=== PATIENT | male | born 1935 | race Caucasian/White ===

== ENCOUNTER → 2023-09-16 10:01 | Outpatient (REF) | payer BC, SELFPAY | LOC: HWRCS 10:01 | PROVIDERS: ATTENDING PHYSICIAN Internal Medicine Critical Care Medicine; FAMILY PHYSICIAN Internal Medicine | DX: R06.02 Shortness of breath (principal) | CPT/HCPCS: 71046; 93306 ==

== ENCOUNTER → 2023-11-04 08:02 | Outpatient (REF) | payer BC, SELFPAY | LOC: DHCBC/DCA 08:02 | PROVIDERS: ATTENDING PHYSICIAN Internal Medicine; FAMILY PHYSICIAN Internal Medicine | DX: I50.32 Chronic diastolic (congestive) heart failure (principal); I25.10 Atherosclerotic heart disease of native coronary artery without angina pectoris; R06.09 Other forms of dyspnea | CPT/HCPCS: 78452; 93017; A9500 ==

== ENCOUNTER → 2024-07-27 11:04 | Outpatient (REF) | payer BC, SELFPAY ==
[2024-07-29 09:57] LABS: SSA 52 (Ro)(ENA) Ab, IgG 3 AU/mL (0-40); SSA 60 (Ro)(ENA) Ab, IgG 1 AU/mL (0-40); SSB (La)(ENA) Ab, IgG 0 AU/mL (0-40)
== END ==
LOC: HWLAB 11:04
PROVIDERS: ATTENDING PHYSICIAN Internal Medicine Critical Care Medicine; FAMILY PHYSICIAN Internal Medicine
DX: R93.89 Abnormal findings on diagnostic imaging of other specified body structures (principal); R68.2 Dry mouth, unspecified
CPT/HCPCS: 36415; 71046; 86235

== ENCOUNTER → 2025-02-17 10:09 | Outpatient (REF) | payer BC, SELFPAY | LOC: HWRCS 10:09 | PROVIDERS: ATTENDING PHYSICIAN Internal Medicine; FAMILY PHYSICIAN Internal Medicine | DX: R06.00 Dyspnea, unspecified (principal); I25.10 Atherosclerotic heart disease of native coronary artery without angina pectoris | CPT/HCPCS: 93306 ==

== ENCOUNTER 2025-02-21 06:13 | Day surgery (SDC) | payer BC, SELFPAY ==
[2025-02-21] VITALS (20 sets, daily range): BP systolic 139–178; BP diastolic 69–100; BMI 26.5
[2025-02-21] MEDS: LOW STRENGTH ASPIRIN 81 MG PO (07:19)
--- NOTE | 2025-02-21 09:09 | ITS.CL.CATH ---
[facility] - Catheterization
Cardiac Catheterization
Procedure Report:
CARDIAC CATHETERIZATION REPORT
Date of Procedure: 02/21/2025
Referring: Dhiraj Calvillo M.D., Ph.D.
Indication: Known coronary artery disease, worsening dyspnea on exertion.
PROCEDURE:
1. Right heart catheterization.
2. Coronary angiography.
3. Left heart catheterization.
4. Successful IVUS of the left main coronary artery.
5. Successful IFR of the mid right coronary artery.
A total of 45 minutes of procedural/moderate sedation was utilized. An independent biomedical photographer was present to assist with and help manage the patient's level of consciousness and physiologic status.
ACCESS:
1. 6 British right radial artery using a modified Seldinger technique.
2. 5 British right antecubital vein using a previously placed IV.
CATHETERS:
1. 5 British balloon wedge.
2. 5 British JR4.
3. 5 British JL 3.5.
4. 6 British JL 3.5 guiding catheter.
5. 6 British JR4 guiding catheter.
HEMODYNAMIC DATA
Weight (kg): 83.9
AO (s/d/x, mmHg): 153/74/106
LV (s/x, mmHg): 153/15 (A wave to 21)
PCWP (a/v/x, mmHg): 24/23/16
PA (s/d/x, mmHg): 30/16/21
RV (s/x, mmHg): 31/
RA (a/v/x, mmHg): 18//
SVC SvO2 (%): 67.0
IVC SvO2 (%): Not obtained.
RA SvO2 (%): Not obtained.
RV SvO2 (%): Not obtained.
PA SvO2 (%): 71.5
SaO2 (%): 99.3
Hbg (g/dL): 11.4
LELO
CO (L/min): 5.37
CI (L/min/m2): 2.66
Thermodilution
CO (L/min): Not performed.
CI (L/min/m2): Not performed.
TPG (mmHg): 5
PVR (Velázquez Units): 0.93
SVR (dynes*seconds*cm^-5): 1415
AVO2 Diff (Volume %): 4.3
Cardiac Power Output (pires): 1.26 (MAP * CO)/451 (normal 0.5 - 0.7; 0.4 - 0.6 in the elderly)
Cardiac Power Index (pires/m2): 0.63 (MAP * CI)/451
Clotilde: 1.36 (PAs-PAd)/RA
AV gradient (x, mmHg): None.
AV area (cm2): Normal.
MV gradient (x, mmHg): Not obtained.
MV area (cm2): Not obtained.
LEFT VENTRICULOGRAPHY: Not performed.
AORTOGRAPHY: Not performed.
CORONARY ANGIOGRAPHY
Dominance: Right.
Left Main: Normal size, trifurcating vessel. There is a hazy, densely calcified 70% lesion in the mid and distal vessel as it approaches the trifurcation point.
LAD: Normal size vessel giving rise to 1 significant diagonal. There are minor luminal irregularities.
Ramus: Large size vessel which bifurcates into 2 significant vessel supplying the lateral and anterolateral wall. There is a 50% lesion in the proximal vessel right as the artery splits.
Circumflex: Small to medium size, nondominant vessel that gives rise to a small obtuse marginal. There is a 40% ostial tapering.
RCA: Normal size, dominant vessel. There is a 50% lesion in the mid vessel.
INTERVENTIONS
1. Successful IVUS of the left main coronary artery demonstrating severe, occlusive atherosclerotic disease with dense calcification (MLA = 4.2 mm�).
2. Successful IFR of the 50% mid RCA lesion, demonstrating nonocclusive disease (IFR = 0.94).
Narrative:
The decision was made to perform intracoronary imaging. The diagnostic catheter was removed over a wire and exchanged for 6 British JL 3.5 guiding catheter. The guiding catheter was advanced into the ascending aorta and seated in the left main
coronary artery. Additional heparin was given to obtain an ACT greater than 250 seconds. After crossing the lesion with a coronary wire into the ramus intermedius, an IVUS catheter was advanced through the guiding catheter and into the ostium of
the artery. Ring down was performed once the imaging crystal was no longer inside of the guiding catheter. The IVUS catheter was advanced into the distal left main, but would not enter the ramus implying significant stenosis. Intravascular
ultrasound was performed in a retrograde fashion using a slow pullback. Intracoronary imaging demonstrated severe, densely calcified atherosclerotic disease burden in the mid and distal left main coronary artery. Minimal luminal area 4.2 mm�. The
IVUS catheter was pulled back and the wire was redirected into the LAD and IVUS was repeated with similar findings. Of note, the IVUS was also not able to enter the LAD implying that the bulk of any stenosis lies within the left main coronary
artery. The IVUS catheter was withdrawn and angiography was repeated demonstrating stable coronary anatomy.
The decision was made to perform physiologic testing of the mid RCA lesion. The 6 British JL 3.5 guiding catheter was removed over a wire and exchanged for a(n) 6 British JR4 guiding catheter. The guiding catheter was advanced into the ascending
aorta and seated in the right coronary artery. Additional heparin was given to obtain an ACT greater than 250 seconds. An iFR wire was zeroed outside of the body, then inserted into the guiding sheath. The wire was advanced and the transducer was
normalized just outside of the guiding catheter tip. The wire was advanced into the distal RCA. Three iFR measurements were taken. The lesion was determined to be nonocclusive (0.94). The IFR wire was withdrawn and final angiography demonstrates
preserved right coronary anatomy.
Closure Device: Vascular band for the right radial artery, manual pressure for the right antecubital vein.
Radiation dose (mGy): 613.00
DAP (cm2.Gy): 53.3158
Fluoroscopy time (minutes): 14.5
CONCLUSIONS:
1. Right dominant circulation with a nonocclusive 50% lesion in the mid RCA (iFR = 0.94) and a hazy, densely calcified 70% lesion in the mid and distal trifurcating left main coronary artery with an occlusive minimal luminal area on IVUS (4.2 mm�).
2. Highly complex anatomy of the left main coronary artery.
3. Mildly elevated filling pressures (LVEDP = 15 mmHg, PCWP = 16 mmHg at 83.9 kg).
4. Normal pulmonary pressure.
5. Normal cardiac performance measurements (cardiac index = 2.66 L/min/m�, a VO2 difference = 4.3 volume%, cardiac power output = 1.26 W, Clotilde = 1.36).
RECOMMENDATIONS:
1. Expectant management after cardiac catheterization via right radial and antecubital approach.
2. Limited weight bearing on the right wrist for one week.
3. Consultation with general cardiology and patient/family regarding optimal treatment strategy given advanced age and complexity of left main coronary artery disease.
4. Start metoprolol 25 mg daily.
5. Continue aggressive risk factor modification including blood pressure and lipid control. Goal LDL <55.
Copy to: Dhiraj Calvillo M.D., Ph.D., Cherelle Jarrell M.D.
Kan Reed DO, FACC, FACP
[2025-02-21 09:52] LABS: ACT-LR - POC > 397 Seconds (116-155)
== END 2025-02-21 13:45 | disposition home or self-care (01) ==
LOC: CATH 06:13
PROVIDERS: ATTENDING PHYSICIAN Internal Medicine Cardiovascular Disease; FAMILY PHYSICIAN Internal Medicine; OTHER PHYSICIAN Internal Medicine
DX: I25.10 Atherosclerotic heart disease of native coronary artery without angina pectoris (principal); I25.84 Coronary atherosclerosis due to calcified coronary lesion; R06.09 Other forms of dyspnea; Z79.82 Long term (current) use of aspirin; Z79.899 Other long term (current) drug therapy; E78.5 Hyperlipidemia, unspecified; I45.10 Unspecified right bundle-branch block; I47.20 Ventricular tachycardia, unspecified
CPT/HCPCS: 93799; 92978; 99152; 99153; 85347; 93460; C1753; C1769; C1894; Q9967